=== PATIENT | male | born 1980 | race Caucasian/White ===

== ENCOUNTER 2017-07-13 15:49 | Emergency (ER) | payer BC ==
[2017-07-13 16:49] VITALS: BP 128/88
--- NOTE | 2017-07-13 16:57 | UC ---
Shoulder Pain HPI - HPI Summary HPI Summary: c/o sharp left shoulder pain that started 6 days ago, when he woke up with it. Pain appears with certain positions, when lying on his right side or pronating arm. He denies any repetitive overhead motion, history of fall or trauma or sport. States he tried naproxen but it did not help. There is no baseline pain when he is not in these postures/ - History of Current Complaint Chief Complaint: UCUpperExtremity Stated Complaint: L SHOULDER PAIN Time Seen by Provider: 07/13/17 16:33 Hx Obtained From: Patient Onset/Duration: Sudden Onset, Lasting Days Timing: Minutes Severity Initially: Mild Severity Currently: Mild Pain Intensity: 0 Character: Sharp Aggravating Factor(s): Movement, Lifting, Internal Rotation Alleviating Factor(s): Rest Associated Signs And Symptoms: Positive: Negative - Risk Factors Non-Orthopedic Risk Factor: Negative DVT Risk Factors: Negative Septic Arthritis Risk Factor: Negative - Allergies/Home Medications Allergies/Adverse Reactions: Allergies Allergy/AdvReac Type Severity Reaction Status Date / Time No Known Allergies Allergy Verified 07/13/17 16:10 Home Medications: Home Medications Naproxen Sodium [Aleve] 2 tab PO Q12H PRN 07/13/17 [History Confirmed 07/13/17] PMH/Surg Hx/FS Hx/Imm Hx Previously Healthy: Yes - Surgical History Surgical History: Yes Surgery Procedure, Year, and Place: hernia repair- 5 years ago - Social History Alcohol Use: Rare Substance Use Type: None Smoking Status (MU): Never Smoked Tobacco Review of Systems Constitutional: Negative Musculoskeletal: Arthralgia All Other Systems Reviewed And Are Negative: Yes Physical Exam Triage Information Reviewed: Yes Appearance: Well-Appearing Vital Signs: Initial Vital Signs Temp 98.1 F 07/13/17 16:07 Pulse 98 07/13/17 16:07 Resp 14 07/13/17 16:07 BP 159/109 07/13/17 16:07 Pulse Ox 98 07/13/17 16:07 Vital Signs Reviewed: Yes Eye Exam: Normal Neck exam: Normal Neck: Positive: Supple Respiratory: Positive: Chest non-tender Cardiovascular: Positive: RRR, No Murmur, Pulses Normal, Brisk Capillary Refill Musculoskeletal: Positive: Strength Intact, ROM Intact, No Edema - hope equivocal, impingement positive, spurling negative. Empty can test positive. Shoulder Course/Dx - Course Course Of Treatment: referral orthopedics and PT - Differential Dx/Diagnosis Provider Diagnoses: shoulder sprain. Rotator cuff syndrome Discharge - Discharge Plan Condition: Stable Disposition: HOME Patient Education Materials: Shoulder Sprain (ED) Referrals: [facility] [Provider Group] Gwyn Dockery MD [Medical Doctor] - No Primary Care Phys,NOPCP [Primary Care Provider] -
--- NOTE | 2017-07-13 17:47 | RAD ---
INDICATION: 1 week of shoulder pain COMPARISON: None. TECHNIQUE: 4 views of the left shoulder were obtained. FINDINGS: The adequately corticated bones are in normal alignment. Joint spaces appear maintained. No fracture, dislocation or focal bony abnormality is seen. IMPRESSION: Normal radiograph of the left shoulder. If the patient's symptoms persist, follow-up imaging is recommended.
== END 2017-07-13 17:53 | disposition home or self-care (01) ==
LOC: UCEAST 15:49
DX: S43.402A Unspecified sprain of left shoulder joint, initial encounter (principal); X58.XXXA Exposure to other specified factors, initial encounter; Y93.9 Activity, unspecified; Y92.9 Unspecified place or not applicable; M75.102 Unspecified rotator cuff tear or rupture of left shoulder, not specified as traumatic
CPT/HCPCS: 99201; G0463